=== PATIENT | female | born 2000 | race Caucasian/White ===

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

== ENCOUNTER → 2022-04-13 | Outpatient (CLI) | payer BC ==
[2022-04-13 10:22] VITALS: BP 145/84; PULSE 84; RESP 18; TEMP 97.9
--- NOTE | 2022-04-13 15:34 | P.PAINPG ---
PQRS Measure Charge Sheet Comment: HISTORY OF PRESENT ILLNESS: 21 yr old female w mother at side as a referral from Dr Santos presents today w severe and chronic LBP secondary to L5-S1 disc bulge and DDD for evaluation. Pt states pain level is at 8/10 in intensity, constant, localized in the lower lumbar spine, sore in character w shooting pain towards the BL hips. Pain is provoked by standing/ sitting for periods of 30 min or more. Pain is alleviated by PT in November 2020 x 4 wks, heat, repositioning and rest. PMH: NIDDM PSH: Denies SH: Negative x 3 FH: Non contributory All: NKDA Meds: See list REVIEW OF ORGAN SYSTEMS: CONSTITUTIONAL: No fevers or chills. No recent weight loss. NEUROLOGICAL: + numbness and tingling along the distal extremities. No seizure disorders or headaches. MUSCULOSKELETAL: + pain PSYCHIATRIC: Denies current depression or suicidal thoughts. Physical Examinations : Constitutional : Cooperative , not in acute distress . Neurologic : Cranial nerve II to XII intact. No focal neurological deficits. Psychiatric : alert & oriented x 3. Matching mood & appropriate affect. Judgment & insight intact. Musculoskeletal : Cervical Spine Motor strength in the deltoid and biceps: Normal right side. Normal Left side Motor strength biceps and the wrist extensors: Normal right side . Normal left side Motor strength in the triceps muscle: Normal right side. Normal left side Deep tendon reflexes: Normal at the biceps. Normal at Brachioradialis. Normal at triceps Vertebral body tenderness to deep palpation over Cervical facet loading test: positive bilaterally Spurling test: positive bilaterally Neck distraction test: positive bi laterally Nuno sign: positive bilaterally Lumbar spine Motor strength lower extremities ,thigh and legs 5/5 Right side , 5/5 Left side Deep tendon reflexes : Normal Knee Jerk. Normal Ankle Jerk Vertebral body tenderness over L5 Lumbar facet Loading Test: positive Right / positive Left Range of motion of the lumbar spine Flexion 30 degrees, extension 10 degrees Straight Leg Raise test: Left/ Right positive at degree Zaynab test: positive right / positive left. Severe tenderness over the Sacroiliac joint on the Right / Left sides Gaenslen test: positive bilaterally Seated flexion test: positive bilaterally. Sacral spine : Severe tenderness over the Sacroiliac joint: right side / left side Range of motion: Flexion of the lumbar spine <60 degrees Range of motion: Extension of the lumbar spine <20 degrees Gaenslen's Test positive Todd's Test positive Zaynab test: positive right side / left side Thigh Thrust Test Sacral Thrust Test Imaging: MRI without contrast of the lumbar spine from 03/09/22 reviewed Assessment/ Plan : Lumbar DDD, Lumbar disc bulge Recommendation of CATHY L5-S1. May need a series of injections, up to 3 within a 6mo period, for optimal pain relief. Risks, benefits of procedure discussed and patient verbalized understanding. Admits to aspirin or anti- coagulant use or medical history of diabetes. Protocol for discontinuation/ continuation of medications linda procedure discussed. All questions answered. I have spent greater than 30 minutes on patient care today. Dr Aquino was available by phone for the evaluation of this patient. The time was used to review the medical records including relevant urine studies and Prescription history (MAPs), review of the available imaging, evaluation and examination of the patient, coordination of care with the medical staff and if applicable referring physicians, as well as creation of the medical record Home Medications: Ambulatory Orders Insulin Aspart (For Pump) [NovoLOG (For Pump)] 0.01 unit SQ-PUMP CONTINUOUS 04/13/22 Semaglutide [Ozempic] 0.25 mg SQ [id number] 04/13/22 Controlled Substance Measures - Controlled Substance Measures Is patient prescribed a controlled substance at discharge?: No
== END ==
LOC: PNWHC3 09:29
PROVIDERS: ATTEND Specialist
DX: M51.36 Other intervertebral disc degeneration, lumbar region (principal); Z79.01 Long term (current) use of anticoagulants; E11.9 Type 2 diabetes mellitus without complications; Z79.4 Long term (current) use of insulin
CPT/HCPCS: 99211

== ENCOUNTER → 2022-05-30 | Outpatient (CLI) | payer BC ==
--- NOTE | 2022-06-01 14:31 | MR ---
EXAMINATION TYPE: MR cervical spine w con, MR thoracic spine w con DATE OF EXAM: 05/30/2022 COMPARISON: Outside institution MRI 05/14/2022 05/05/2022. HISTORY: Neck and back pain, abnormal MRI TECHNIQUE: Multiplanar cervical and thoracic spine T1 only with contrast imaging acquired without and with contr ast and with 7 mL FINDINGS: CERVICAL: Alignment: The cervical vertebral bodies have preserved heights. Alignment is within normal limits gi juan patient positioning. Bones: Bone signal is within normal limits. No abnormal postcontrast enhancement. Cord: No abnormal postcontrast enhancement. Discs: Intervertebral disc signal is maintained. C2-C3: No significant disc pathology. The spinal canal is patent. No neural foraminal stenosis. C3-C4: No significant disc pathology. The spinal canal is patent. No neural foraminal stenosis. C4-C5: No significant disc pathology. The spinal canal is patent. No neural foraminal stenosis. C5-C6: No significant disc pathology. The spinal canal is patent. No neural foraminal stenosis. C6-C7: No significant disc pathology. The spinal canal is patent. No neural foraminal stenosis. C7-T1: No significant disc pathology. The spinal canal is patent. No neural foraminal stenosis. THORACIC: Abnormal cord signal seen within the thoracic cervical spine centrally at the level of T3 s een on prior. No evidence significant spinal canal or neural foraminal stenosis. Spinal cord is withi n normal limits . No abnormal postcontrast enhancement. Other: [place] tonsil, lingual tonsil and and adenoid enlargement. IMPRESSION: 1. No abnormal postcontrast enhancement within the spinal cord to suggest active demyelination. Area of abnormal signal within the spinal cord around level of T3. No reports for comparison studies were available at the time of dictation. 2. No definitive evidence of disc herniation or significant spinal canal stenosis. 3. [place] tonsil, lingual tonsil and and adenoid enlargement.
== END | disposition home or self-care (01) ==
LOC: RADMRIMAIN 08:59
PROVIDERS: ATTEND Orthopaedic Surgery Orthopaedic Surgery of the Spine
DX: M51.36 Other intervertebral disc degeneration, lumbar region (principal); M79.12 Myalgia of auxiliary muscles, head and neck; J35.3 Hypertrophy of tonsils with hypertrophy of adenoids; R20.2 Paresthesia of skin; R59.0 Localized enlarged lymph nodes
CPT/HCPCS: 72142; 72147; A9585

== ENCOUNTER → 2022-09-12 | Outpatient (CLI) | payer BC ==
--- NOTE | 2022-09-13 09:23 | MR ---
MRI right hip without contrast. HISTORY: Right hip pain and clicking sensation. COMPARISON: None TECHNIQUE: Multiecho multiplanar images of the right hip are obtained. FINDINGS: The osseous structures are intact and there is no fracture. There is minimal joint fluid. There is no CAM deformity of the right hip and no definite evidence of femoral acetabular impingement . The labrum is grossly intact. No abnormality of the pelvis is identified. IMPRESSION: 1. No significant abnormality of the right hip. 2. If there is a strong clinical suspicion for labral injury. Right hip , then MRI arthrogram is binu mmended for further evaluation.
== END | disposition home or self-care (01) ==
LOC: RADMRIMAIN 10:09
PROVIDERS: ATTEND Physical Medicine & Rehabilitation
DX: M25.551 Pain in right hip (principal)
CPT/HCPCS: 73723; A9585

== ENCOUNTER → 2023-05-21 | Outpatient (CLI) | payer BC ==
[2023-05-21 16:20] LABS: Basophils # (A) 0.02 X 10*3/uL (0.00-0.10); Basophils % (A) 0.3 %; Eosinophils # (A) 0.39 X 10*3/uL (0.04-0.35); HCT 43.7 % (37.2-46.3); Lymphocytes # (A) 2.49 X 10*3/uL (0.90-5.00); MCH 27.7 pg (27.0-32.0); MCV 86.5 FL (80.0-97.0); Mean Platelet Volume 9.7 FL (9.5-12.2); Monocytes # (A) 0.48 X 10*3/uL (0.20-1.00); Monocytes % (A) 6.2 %; NRBC Per 100 WBC 0 X 10*3/uL (0.00-0.01); Neutrophils # (A) 4.37 X 10*3/uL (1.80-7.70); Neutrophils % (A) 56.2 %; Platelet Count 335 X 10*3/uL (140-440); RBC 5.05 X 10*6/uL (4.10-5.20); RDW 13.3 % (11.5-14.5); WBC 7.77 X 10*3/uL (4.50-10.00)
[2023-05-21 16:52] LABS: Chol/HDL Ratio 3.58 Ratio; LDL Cholesterol,Calculated 137.8 mg/dL (0.0-131.0)
== END | disposition home or self-care (01) ==
LOC: LABWHC1 09:30
PROVIDERS: ATTEND Family Medicine
DX: R53.83 Other fatigue (principal)
CPT/HCPCS: 36415; 80061; 84443; 85025